=== PATIENT | male | born 1975 | race American Indian/Alaskan Native ===

== ENCOUNTER 2022-01-27 18:39 | Emergency (ER) | payer BC ==
[2022-01-27 23:14] VITALS: BP 169/85
[2022-01-28] MEDS ORDERED: SODIUM CHLORIDE 0.9% 1000 ML 1,000 ML IV ONE (00:24)
[2022-01-28] MEDS ORDERED: FAMOTIDINE 20 MG/2 ML INJ IV ONE (00:24)
[2022-01-28] MEDS ORDERED: ONDANSETRON 4 MG/2 ML INJ IV ONE (00:24)
[2022-01-28 00:50] LABS: Basophils % (Auto) 0.3 % (0.0-1.8); Eosinophils % (Auto) 0.3 % (0.0-4.3); Hematocrit 45.8 % (35.5-45.6); Hemoglobin 15.1 gm/dl (11.8-15.2); Lymphocytes # (Auto) 2.7 K/mm3 (1.2-5.4); Lymphocytes % (Auto) 34.4 % (13.4-35.0); Mean Corpuscular HGB Conc 33 % (32-34); Mean Corpuscular Volume 90 fl (84-94); Monocytes # (Auto) 0.6 K/mm3 (0.0-0.8); Platelet Count 325 K/mm3 (140-440); Red Blood Count 5.09 M/mm3 (3.65-5.03)
[2022-01-28 01:35] LABS: Albumin 4.5 g/dL (3.9-5); Calcium 9.6 mg/dL (8.4-10.2)
[2022-01-28] MEDS ORDERED: KETOROLAC 30 MG/1 ML INJ IV ONE (02:56)
[2022-01-28] MEDS ORDERED: diazePAM 10 MG/2 ML SYRINGE IV ONE (02:56)
--- NOTE | 2022-01-28 03:37 | Emergency Department Report ---
ED General Adult HPI - General Chief complaint: Anxiety Stated complaint: ANXIETY Source: patient, EMS Mode of arrival: Stretcher Limitations: No Limitations - History of Present Illness Initial comments: Patient is a 46-year-old -[place] male with a history of HIV who pr esents to the ED with complaint of acute onset persistent intermittent muscle spasm and muscle strength with upper and lower extremities bilaterally for the last 8 hours. Patient states that he was at a movie theater when he started experiencing these symptoms such that he was unable to walk. Patient states that he is currently taking 50,000 units of vitamin D supplement once a week 50,000 unit after being diagnosed with vitamin D deficiency about 2 weeks ago. Patient also states that even at the time he was also diagnosed with H. pylori infection but was told that the infection is dominant and did not get any prescription for antibiotics. Patient also states that the symptoms have been persistent and worse with movement. Patient denies dizziness, syncope, chest pain or shortness of breath, abdominal pain, nausea and vomiting, diarrhea, dysuria, traumatic injury, heavy lifting, back pain, hematuria, numbness and tingling or weakness of upper and lower extremities bilaterally. MD Complaint: Bilateral upper and lower extremity pain, muscle spasm, lethargy -: Sudden, hour(s) (8) Location: upper extremity (bilaterally), lower extremity (bilaterally) Radiation: non-radiation, extremity (Bilateral upper and lower extremities), abdomen (mild epigastric discomfort) Severity scale (0 -10): 4 Quality: aching, dull Consistency: intermittent Improves with: rest Worsens with: movement Associated Symptoms: denies other symptoms, malaise, weakness. denies: confusion, chest pain, cough, diaphoresis, fever/chills, headaches, loss of ap petite, nausea/vomiting, rash, seizure, shortness of breath, syncope Treatments Prior to Arrival: none - Related Data Previous Rx's Medication Instructions Recorded Last Taken Type Amoxicillin [Trimox CAP] 1,000 mg PO Q12H #40 capsule 01/28/22 Unknown Rx Clarithromycin 500 mg PO Q12H #20 tab 01/28/22 Unknown Rx Famotidine [Pepcid] 20 mg PO BID #60 tablet 01/28/22 Unknown Rx Ibuprofen [Motrin] 600 mg PO Q8H PRN #30 tablet 01/28/22 Unknown Rx Omeprazole 40 mg PO Q12H #60 cap 01/28/22 Unknown Rx Ondansetron [Zofran Odt] 4 mg PO Q8HR PRN #20 tab.rapdis 01/28/22 Unknown Rx methOCARBAMOL [Robaxin TAB] 750 mg PO Q8H PRN #30 tab 01/28/22 Unknown Rx Allergies Allergy/AdvReac Type Severity Reaction Status Date / Time No Known Allergies Allergy Verified 01/27/22 18:48 ED Review of Systems ROS: Stated complaint: ANXIETY Other details as noted in HPI Constitutional: denies: chills, fever Eyes: denies: eye pain, eye discharge, vision change ENT: denies: ear pain, throat pain, congestion Respiratory: denies: cough, shortness of breath, wheezing Cardiovascular: denies: chest pain, palpitations Endocrine: no symptoms reported Gastrointestinal: denies: abdominal pain, nausea, vomiting, diarrhea Genitourinary: denies: urgency, dysuria Musculoskeletal: arthralgia (Bilateral upper and lower extremity pain and muscle spasms), myalgia ( bilateral upper and lower extremity muscle spasm and muscle strain and pain). denies: back pain, joint swelling Skin: denies: rash, lesions Neurological: denies: headache, weakness, paresthesias Psychiatric: denies: anxiety, depression, auditory hallucinations, visual hallucinations, suicidal thoughts Hematological/Lymphatic: denies: easy bleeding, easy bruising ED Past Medical Hx - Past Medical History Hx HIV: Yes - Medications Home Medications: Home Medications Medication Instructions Recorded Confirmed Last Taken Type Amoxicillin [Trimox CAP] 1,000 mg PO Q12H #40 capsule 01/28/22 Unknown Rx Clarithromycin 500 mg PO Q12H #20 tab 01/28/22 Unknown Rx Famotidine [Pepcid] 20 mg PO BID #60 tablet 01/28/22 Unknown Rx Ibuprofen [Motrin] 600 mg PO Q8H PRN #30 tablet 01/28/22 Unknown Rx Omeprazole 40 mg PO Q12H #60 cap 01/28/22 Unknown Rx Ondansetron [Zofran Odt] 4 mg PO Q8HR PRN #20 tab.rapdis 01/28/22 Unknown Rx methOCARBAMOL [Robaxin TAB] 750 mg PO Q8H PRN #30 tab 01/28/22 Unknown Rx ED Physical Exam - General Limitations: No Limitations General appearance: alert, in no apparent distress - Head Head exam: Present: atraumatic, normocephalic, normal inspection - Eye Eye exam: Present: normal appearance, PERRL, EOMI Pupils: Present: normal accommodation - ENT ENT exam: Present: normal exam, normal orophraynx, mucous membranes moist, TM's normal bilaterally, normal external ear exam - Neck Neck exam: Present: normal inspection, full ROM. Absent: tenderness - Respiratory Respiratory exam: Present: normal lung sounds bilaterally. Absent: respiratory distress, wheezes, rales, chest wall tenderness, accessory muscle use, decreased breath sounds, prolonged expiratory - Cardiovascular Cardiovascular Exam: Present: normal rhythm, tachycardia, normal heart sounds. Absent: systolic murmur, diastolic murmur, rubs, gallop - GI/Abdominal GI/Abdominal exam: Present: soft, normal bowel sounds. Absent: tenderness, guarding, rebound, hyperactive bowel sounds, hypoactive bowel sounds, organomegaly, mass - Extremities Exam Extremities exam: Present: normal inspection, full ROM, normal capillary refill. Absent: tenderness, pedal edema, joint swelling, calf tenderness - Back Exam Back exam: Present: normal inspection, full ROM, muscle spasm. Absent: tenderness, CVA tenderness (R), paraspinal tenderness, vertebral tenderness - Neurological Exam Neurological exam: Present: alert, oriented X3, CN II-XII intact, normal gait, reflexes normal - Psychiatric Psychiatric exam: Present: normal affect, normal mood, anxious - Skin Skin exam: Present: warm, dry, intact, normal color. Absent: rash ED Course Vital Signs 01/27/22 01/27/22 18:46 23:03 Temperature 98.0 F Pulse Rate 108 H 103 H Respiratory 20 Rate Blood Pressure 169/85 Blood Pressure 152/90 [Left] O2 Sat by Pulse 100 100 Oximetry ED Medical Decision Making - Lab Data Result diagrams: 01/28/22 00:34 01/28/22 00:34 - Medical Decision Making This is a 46-year-old -[place] male with a history of HIV who presents to the ED with complaint of acute onset persistent intermittent muscle spasm and muscle strength with upper and lower extremities bilaterally for the last 8 hours. Patient states that he was at a movie theater when he started experiencing these symptoms such that he was unable to walk. Patient states that he is currently taking 50,000 units of vitamin D supplement once a week 50,000 unit after being diagnosed with vitamin D deficiency about 2 weeks ago. Patient also states that even at the time he was also diagnosed with H. pylori infection but was told that the infection is dominant and did not get any prescription for antibiotics. Patient also states that the symptoms have been persistent and worse with movement. In the ED, patient is alert and oriented x3 and is not in any distress. Patient was treated for pain in the ED, also given muscle relaxants and normal saline 1 L IV bolus x1 as well as antacids. Lab test results were reviewed and showed elevated CK level of 378. Urinalysis is unremarkable. On reevaluation, patient's pain is well controlled medication. Patient will discharge home on medications and advised to follow-up with his primary care physician in 7 to 10 days for reevaluation or return to the ED immediately if symptoms get worse. - Differential Diagnosis Muscle spasm; muscle strain; H. pylori; anxiety; Critical care attestation.: If time is entered above; I have spent that time in minutes in the direct care of this critically ill patient, excluding procedure time. ED Disposition Clinical Impression: Muscle spasms of both lower extremities, Spasm of muscle of lower back, Elevated CK-MB level, H. pylori infection Muscle strain of upper arm Qualifiers: Encounter type: initial encounter Laterality: unspecified laterality Qualified Code(s): S46.919A - Strain of unspecified muscle, fascia and tendon at shoulder and upper arm level, unspecified arm, initial encounter Disposition: 01 HOME / SELF CARE / HOMELESS Is pt being admited?: No Does the pt Need Aspirin: No Condition: Stable Instructions: Muscle Cramps and Spasms, [id number], Muscle Strain, [id number] Additional Instructions: All lab test results were reviewed and are all nonactionable. Therefore take medication with food, drink plenty of fluids and follow-up with your primary care physician in 7 to 10 days for reevaluation. Return to the ED immediately if symptoms get worse. Prescriptions: Clarithromycin 500 mg PO Q12H #20 tab Ibuprofen [Motrin] 600 mg PO Q8H PRN #30 tablet PRN Reason: Pain Omeprazole 40 mg PO Q12H #60 cap Famotidine [Pepcid] 20 mg PO BID #60 tablet methOCARBAMOL [Robaxin TAB] 750 mg PO Q8H PRN #30 tab PRN Reason: Muscle Spasm Amoxicillin [Trimox CAP] 1,000 mg PO Q12H #40 capsule Ondansetron [Zofran Odt] 4 mg PO Q8HR PRN #20 tab.rapdis PRN Reason: Nausea Referrals: JULY KEN MD [Primary Care Provider] - 3-5 Days Time of Disposition: 05:03 Print Language: [place]
[2022-01-28 04:34] LABS: Bilirubin,Urine NEG (Negative); Blood,Urine NEG (Negative); Color,Urine Yellow (Yellow)
[2022-01-28 04:51] LABS: WBC,Urine < 1.0 /HPF (0.0-6.0)
== END 2022-01-28 05:20 | disposition home or self-care (01) ==
LOC: ED 18:39
DX: S46.919A Strain of unspecified muscle, fascia and tendon at shoulder and upper arm level, unspecified arm, initial encounter (principal); M62.838 Other muscle spasm; M62.830 Muscle spasm of back; K29.90 Gastroduodenitis, unspecified, without bleeding; Z20.2 Contact with and (suspected) exposure to infections with a predominantly sexual mode of transmission; Z79.899 Other long term (current) drug therapy; X58.XXXA Exposure to other specified factors, initial encounter; Y93.89 Activity, other specified; Y92.89 Other specified places as the place of occurrence of the external cause; Y99.8 Other external cause status
CPT/HCPCS: 36415; 80053; 81001; 82550; 83690; 85025; 96361; 96374; 96375; 99283; J1885; J2405; J3360; J3490; J7030